=== PATIENT | male | born 1955 | race Caucasian/White ===

== ENCOUNTER 2016-08-08 16:25 | Inpatient (IN) | payer OTHER ==
[~2016-08-08] VITALS: Ht 182.9 cm; Wt 103.5 kg
[2016-08-08 16:31] VITALS: BP 150/91; PULSE 67; RESP 18; TEMP 97.8; O2SAT 98
[2016-08-08] MEDS ORDERED: DULA10IN SQ (16:56)
[2016-08-08] MEDS ORDERED: MULT1TAB84 PO (16:56)
[2016-08-08] MEDS ORDERED: ACET1CAP18 PO (16:56)
[2016-08-08] MEDS ORDERED: LABE300T PO (16:56)
[2016-08-08] MEDS ORDERED: CLOP75TA PO (16:56)
[2016-08-08] MEDS ORDERED: VESI5TAB PO (16:56)
[2016-08-08] MEDS ORDERED: ASPI325T PO (16:56)
[2016-08-08] MEDS ORDERED: PARO20TA2 PO (16:56)
[2016-08-08] MEDS ORDERED: ZOLP10TA3 PO (16:56)
[2016-08-08] MEDS ORDERED: FENO160T PO (16:56)
[2016-08-08] MEDS ORDERED: LOSA100T PO (16:56)
[2016-08-08] MEDS ORDERED: ZETI10TA5 PO (16:56)
[2016-08-08] MEDS ORDERED: NOVOLOGP2 SQ (16:56)
[2016-08-08] MEDS ORDERED: DOXA1TAB34 PO (16:56)
[2016-08-08] MEDS ORDERED: LEVO25TA4 PO (16:56)
[2016-08-08] MEDS ORDERED: CALC1TAB53 PO (16:56)
[2016-08-08] MEDS ORDERED: INSU1INJ14 SQ (16:57)
[2016-08-08] MEDS ORDERED: TOLT60TA PO (17:01)
[2016-08-08] MEDS ORDERED: GABA600T PO (17:01)
--- NOTE | 2016-08-08 17:05 | PD ---
HPI Chief Complaint: Dizziness Time Seen by Provider: 16:52 Travel History International Travel<30 days: No Contact w/Intl Traveler<30days: No Traveled to known affect area: No History of Present Illness HPI 61-year-old male came to the emergency room with history of dizziness on and off for past 2 days. Patient feels like the things in front of him are spinning and he is very unsteady on his feet. Feels like he will fall forward and face plant. He has also been little lightheaded. He has never had this kind of sensation in the past. He has been nauseous but did not vomit. No history of syncopal episode or fall. Patient says before all this started he did have a minor head injury 2 days ago. Patient has significant history of coronary artery disease and has 3 stents. Vital signs were otherwise stable. He is here with his . They're not from this area and they were passing through on the symptoms started and came into the emergency room to be checked out. Patient denies any extremity weakness or numbness. He says he does have his right arm kind of numb sensation for past 3 months but that could be related to his diabetes and neuropathy. [facility] Past Medical History Narrative Medical List of his past medical, surgical, social and family history is reviewed from the nursing note. Hx Anticoagulant Therapy: Yes Cardiac Catheterization: Yes (Stents) High Cholesterol: Yes Diabetes: Yes Patient Takes Glucophage: No Hypertension: Yes Tetanus Vaccination: > 5 Years Influenza Vaccination: Yes Past Surgical History Endocrine Surgery: Yes (Parathyroid) Social History Alcohol Use: No Tobacco Use: No Substance Use: No Allergies-Medications (Allergen,Severity, Reaction): Coded Allergies: HMG-CoA Reductase Inhibitors (Verified Allergy, Severe, Anaphylaxis, ) Lisinopril (Verified Allergy, Severe, Anaphylaxis, 08/08/16) Comments List of his allergies reviewed from the nursing note. Reported Meds & Prescriptions Reported Meds & Active Scripts Active Reported Gabapentin 600 Mg Tab 600 Mg PO TID Tolterodine (Tolterodine Tartrate) 1 Mg Tab 1 Mg PO BID Tresiba Flextouch Pen Inj (Insulin Degludec Inj) 300 unit/3 ML Pen 20 Units SQ HS Trulicity Inj (Dulaglutide Inj) 0.75 Mg/0.5 Ml Pen 0.75 Mg SQ Q7D Calcium & Magnesium + Zinc (Xukaqap-Xbwhsjkuk-Itew) 334-134-5 Mg Tab 1 Tab PO BID Multivitamin Adults (Multiple Vitamins W/ Minerals) 1 Tab 1 Tab PO DAILY Tylenol (Acetaminophen) 325 Mg Cap 1,000 Mg PO BID Novolog Inj (Insulin Aspart) 1,000 Unit/10 Ml Vial 0 SQ TID Sliding Scale as directed. Losartan (Losartan Potassium) 100 Mg Tab 100 Mg PO DAILY Clopidogrel (Clopidogrel Bisulfate) 75 Mg Tab 75 Mg PO DAILY Zetia (Ezetimibe) 10 Mg Tab 10 Mg PO DAILY Labetalol (Labetalol HCl) 300 Mg Tab 300 Mg PO BID Fenofibrate 160 Mg Tab 160 Mg PO DAILY Paroxetine (Paroxetine HCl) 20 Mg Tab 20 Mg PO DAILY Levothyroxine (Levothyroxine Sodium) 25 Mcg Tab 25 Mcg PO DAILY Narrative Medication List of his home medications reviewed from the nursing note. Review of Systems Except as stated in HPI: all other systems reviewed are Neg Physical Exam Narrative GENERAL: Awake, alert, no obvious distress SKIN: Focused skin assessment warm/dry. HEAD: Atraumatic. Normocephalic. EYES: Pupils equal and round. No scleral icterus. No injection or drainage. No nystagmus. ENT: No nasal bleeding or discharge. Mucous membranes pink and moist. NECK: Trachea midline. No JVD. CARDIOVASCULAR: Regular rate and rhythm. No murmur appreciated. RESPIRATORY: No accessory muscle use. Clear to auscultation. Breath sounds equal bilaterally. GASTROINTESTINAL: Abdomen soft, non-tender, nondistended. Hepatic and splenic margins not palpable. MUSCULOSKELETAL: No obvious deformities. No clubbing. No cyanosis. No edema. NEUROLOGICAL: Awake and alert. No obvious cranial nerve deficits. Motor grossly within normal limits. Normal speech. Peripheral vision intact. PSYCHIATRIC: Appropriate mood and affect; insight and judgment normal. Data Data Last Documented VS Orders Prothrombin Time / Inr (Pt) (08/08/16 17:17) Complete Blood Count With Diff (08/08/16 17:17) Basic Metabolic Panel (Bmp) (08/08/16 17:17) Troponin I (08/08/16 17:17) Ct Brain W/O Iv Contrast(Rout) (08/08/16 17:17) Chest, Single Ap (08/08/16 17:17) Ecg Monitoring (08/08/16 17:17) Iv Access Insert/Monitor (08/08/16 17:17) Oximetry (08/08/16 17:17) Ondansetron Inj (Zofran Inj) (08/08/16 17:30) Sodium Chloride 0.9% Flush (Ns Flush) (08/08/16 17:30) Meclizine (Antivert) (08/08/16 17:30) Sodium Chlorid 0.9% 500 Ml Inj (Ns 500 M (08/08/16 17:30) Admit Order (Ed Use Only) (08/08/16 18:15) Labs Laboratory Tests Test 08/08/16 17:20 Hemoglobin A1c 9.1 % MDM Medical Decision Making Medical Screen Exam Complete: Yes Emergency Medical Condition: Yes Medical Record Reviewed: Yes Interpretation(s) Twelve-lead EKG was reviewed by me. Normal sinus rhythm, left axis deviation, nonspecific ST-T wave changes, poor R-wave depression. Heart rate of 60 beats per minute. Differential Diagnosis TIA, CVA Narrative Course 6:05 PM blood test results of back and within acceptable limits. CT scan is negative and so is the chest x-ray. However given his significant atherosclerotic history I would like to admit him for observation for TIA. Awaiting for the hospitalist call back. Patient says he took 2 regular strength aspirin this morning. His symptoms have been going on for a while which does not make him a TPA candidate. He is also on Plavix and he doesn't take that till night. Procedures EKG Prior to Arrival: No Diagnosis Primary Impression: Dizziness Additional Impression: TIA (transient ischemic attack) Qualified Code: G45.9 - Transient cerebral ischemia, unspecified type Admitting Information Admitting Physician Requests: Observation Scripts Doxazosin 2 Mg Tab2 Mg PO BID #60 TAB Ref 0 Prov:Nik Watson MD 08/11/16 Pantoprazole (Protonix)40 Mg Tab40 Mg PO DAILY #30 TAB Ref 0 Prov:Celina Cardenas 08/10/16 [Aspirin] (Ecotrin Ec)325 MG TABEC No Conflict [id number] Mg PO BID #60 TAB.EC Prov:Celina Cardenas 08/10/16 Javier Mccray MD Aug 08, 2016 17:05 Lymphocytes # (Auto) 1.7 TH/MM3 Monocytes # (Auto) 0.6 TH/MM3 Eosinophils # (Auto) 0.5 TH/MM3 Basophils # (Auto) 0.1 TH/MM3 CBC Comment DIFF FINAL Differential Comment Prothrombin Time 10.9 SEC Prothromb Time International 1.0 RATIO Ratio Sodium Level 140 MEQ/L Potassium Level 3.9 MEQ/L Chloride Level 105 MEQ/L Carbon Dioxide Level 24.8 MEQ/L Anion Gap 10 MEQ/L Blood Urea Nitrogen 18 MG/DL Creatinine 1.30 MG/DL Estimat Glomerular Filtration 56 ML/MIN Rate Random Glucose 161 MG/DL Calcium Level 8.8 MG/DL Troponin I LESS THAN 0.02 NG/ML MDM Medical Decision Making Medical Screen Exam Complete: Yes Emergency Medical Condition: Yes Medical Record Reviewed: Yes Interpretation(s) Twelve-lead EKG was reviewed by me. Normal sinus rhythm, left axis deviation, nonspecific ST-T wave changes, poor R-wave depression. Heart rate of 60 beats per minute. Differential Diagnosis TIA, CVA Narrative Course 6:05 PM blood test results of back and within acceptable limits. CT scan is negative and so is the chest x-ray. However given his significant atherosclerotic history I would like to admit him for observation for TIA. Awaiting for the hospitalist call back. Patient says he took 2 regular strength aspirin this morning. His symptoms have been going on for a while which does not make him a TPA candidate. He is also on Plavix and he doesn't take that till night. Procedures EKG Prior to Arrival: No Diagnosis Primary Impression: Dizziness Additional Impression: TIA (transient ischemic attack) Qualified Code: G45.9 - Transient cerebral ischemia, unspecified type Admitting Information Admitting Physician Requests: Observation Javier Mccray MD Aug 08, 2016 17:05
[2016-08-08 17:30] VITALS: O2SAT 98
[2016-08-08] MEDS ORDERED: MECLIZINE HCL 25 MG TAB PO ONE (17:30)
[2016-08-08] MEDS ORDERED: SODIUM CHLORID 0.9% 500 ML INJ 500 ML IV ONE (17:30)
[2016-08-08] MEDS ORDERED: ONDANSETRON HCL 4 MG/2 ML VIAL IVP ONE (17:30)
[2016-08-08] MEDS ORDERED: SODIUM CHLORIDE 0.9% FLUSH 10 ML FLUSH IVF PRN (17:30)
[2016-08-08 17:34] LABS: AUTOMATED NEUTROPHIL # 3.9 TH/MM3 (1.8-7.7); BASOPHIL # 0.1 TH/MM3 (0-0.2); BASOPHIL % 1.2 % (0.0-2.0); EOSINOPHIL # 0.5 TH/MM3 (0-0.4); EOSINOPHIL % 7.6 % (0.0-4.0); HEMATOCRIT 44.4 % (39.0-51.0); HEMO FLAGS DIFF FINAL; LYMPH % 24.8 % (9.0-44.0); LYMPHOCYTE # 1.7 TH/MM3 (1.0-4.8); MEAN CELL VOLUME 87.7 FL (80.0-100.0); MEAN CORPUSCULAR HGB CONC 34.2 % (32.0-36.0); MONO % 9.3 % (0.0-8.0); NEUT % 57.1 % (16.0-70.0); PLATELET COUNT 296 TH/MM3 (150-450); RED BLOOD COUNT 5.07 MIL/MM3 (4.50-5.90); RED CELL DISTRIBUTION WIDTH 12.9 % (11.6-17.2); WHITE BLOOD COUNT 6.8 TH/MM3 (4.0-11.0)
[2016-08-08 17:45] VITALS: BP 179/92; PULSE 71; RESP 18; O2SAT 97
[2016-08-08 17:46] LABS: CHLORIDE 105 MEQ/L (98-107); POTASSIUM 3.9 MEQ/L (3.5-5.1); SODIUM (NA) 140 MEQ/L (136-145)
[2016-08-08 17:49] LABS: ANION GAP 10 MEQ/L (5-15); BICARBONATE 24.8 MEQ/L (21.0-32.0)
[2016-08-08 17:50] LABS: BLOOD UREA NITROGEN 18 MG/DL (7-18)
[2016-08-08 17:51] LABS: PROTHROMBIN TIME - PATIENT 10.9 SEC (9.8-11.6)
--- NOTE | 2016-08-08 17:51 | RADHPO ---
EXAM DATE/TIME: 08/08/2016 17:28 [facility] COMPARISON: No previous studies available for comparison. INDICATIONS : Dizziness. MEDICAL HISTORY : Hypertension. Cardiovascular disease. SURGICAL HISTORY : Coronary artery stent. ENCOUNTER: Initial ACUITY: 2 days PAIN SCORE: 0/10 LOCATION: Bilateral chest FINDINGS: A single view of the chest demonstrates the lungs to be symmetrically aerated without evidence of mas s, infiltrate or effusion. The cardiomediastinal contours are unremarkable. Osseous structures are intact. CONCLUSION: 1. No acute cardiopulmonary findings. Steven Canseco MD on August 08, 2016 at 17:49 Board Certified Radiologist. This report was verified electronically.
[2016-08-08 17:53] LABS: GLOMERULAR FILTRATION RATE 56 ML/MIN (>89)
--- NOTE | 2016-08-08 17:54 | RADHPO ---
EXAM DATE/TIME: 08/08/2016 17:32 [facility] COMPARISON: No previous studies available for comparison. INDICATIONS : Dizziness for two days. RADIATION DOSE: 59.07 CTDIvol (mGy) MEDICAL HISTORY : Hypertension. Diabetes. SURGICAL HISTORY : None. ENCOUNTER: Initial ACUITY: 2 days PAIN SCALE: 7/10 LOCATION: cranial TECHNIQUE: Multiple contiguous axial images were obtained of the head. Using automated exposure control and adj ustment of the mA and/or kV according to patient size, radiation dose was kept as low as reasonably a chievable to obtain optimal diagnostic quality images. FINDINGS: There is a tiny high convexity left frontal subcortical white matter lacune which appears old. Brain density is otherwise symmetric and unremarkable. There is no evidence of intracranial mass or hemorrh age. There is nothing to suggest acute infarction. Ventricles are symmetric and normal. The extracran ial structures are benign and intact. CONCLUSION: No acute intracranial findings Chaz Benson MD on August 08, 2016 at 17:52 Board Certified Radiologist. This report was verified electronically.
[2016-08-08 19:00] VITALS: BP 154/82; PULSE 68; RESP 18; O2SAT 96
[2016-08-08] MEDS ORDERED: GLUCAGON 1 MG/ML VIAL OTHER PRN (19:00)
[2016-08-08] MEDS ORDERED: SODIUM CHLORIDE 0.9% FLUSH 10 ML FLUSH IV FLUSH PRN (19:00)
[2016-08-08] MEDS ORDERED: DEXTROSE 50% IN WATER 50 ML VIAL(D50) IV PUSH PRN (19:00)
[2016-08-08] MEDS: INSULIN ASPART SUPPLEMENTAL SCALE SQ SCH (21:00)
[2016-08-08] MEDS ORDERED: LABETALOL HCL 300 MG TAB PO SCH (21:00)
[2016-08-08] MEDS ORDERED: ACETAMINOPHEN 325 MG TAB PO ONE (21:00)
[2016-08-08] MEDS: ENOXAPARIN SODIUM 40 MG/0.4 ML SYRINGE SQ SCH (21:53)
[2016-08-08] MEDS: SODIUM CHLOR 0.9% 1000 ML INJ 1,000 ML IV SCH (21:53)
[2016-08-08] MEDS ORDERED: CLOPIDOGREL 75 MG TAB PO SCH (22:00)
[2016-08-08] MEDS ORDERED: GABAPENTIN 300 MG CAP PO ONE (22:00)
[2016-08-08 22:10] VITALS: BP 169/85; PULSE 74; RESP 18; O2SAT 100
[2016-08-08] MEDS: EZETIMIBE 10 MG TAB PO SCH (22:10)
[2016-08-08] MEDS: LABETALOL HCL 100 MG TAB PO SCH (22:12)
[2016-08-08] MEDS: SODIUM CHLORIDE 0.9% FLUSH 10 ML FLUSH IV FLUSH SCH (22:14)
[2016-08-08 23:45] VITALS: PULSE 60
[2016-08-09] VITALS (7 sets, daily range): BP systolic 158–210; BP diastolic 88–112; PULSE 66–80; RESP 16–20; TEMP 97–97.9; O2SAT 94–98
[2016-08-09] MEDS: LEVOTHYROXINE SODIUM 25 MCG TAB PO SCH (06:47)
[2016-08-09] MEDS: INSULIN ASPART SUPPLEMENTAL SCALE SQ SCH ×4 (06:47→21:30)
[2016-08-09] MEDS: LABETALOL HCL 100 MG TAB PO SCH ×2 (07:43→21:27)
[2016-08-09] MEDS: PARoxetine HCL 20 MG TAB PO SCH (07:43)
[2016-08-09] MEDS: SODIUM CHLOR 0.9% 1000 ML INJ 1,000 ML IV SCH (07:44)
[2016-08-09] MEDS: TOLTERODINE TARTRATE 2 MG CAP LA PO SCH (07:44)
[2016-08-09] MEDS: GABAPENTIN 300 MG CAP PO SCH ×3 (07:44→21:27)
[2016-08-09] MEDS: SODIUM CHLORIDE 0.9% FLUSH 10 ML FLUSH IV FLUSH SCH ×2 (07:44→21:00)
[2016-08-09] MEDS: FENOFIBRATE 145 MG TAB PO SCH (07:44)
[2016-08-09] MEDS ORDERED: CLOPIDOGREL 75 MG TAB PO SCH (09:00)
[2016-08-09] MEDS ORDERED: EZETIMIBE 10 MG TAB PO SCH (09:00)
--- NOTE | 2016-08-09 09:05 | RADHPO ---
EXAM DATE/TIME: 08/09/2016 08:11 [facility] COMPARISON: MRI BRAIN W/O CONTRAST, August 09, 2016, 8:11. INDICATIONS : Dizziness. Blurred vision. MEDICAL HISTORY : Hypertension. Diabetes mellitus type 2. SURGICAL HISTORY : Thyroidectomy. Rotator cuff, left. Rotator cuff, right. Multiple orthopedic surgeries. ENCOUNTER: Initial ACUITY: 3 day PAIN SCORE: 0/10 LOCATION: cranial Please note a normal MRA of the brain does not entirely exclude the possibility of a small aneurysm, nor the possibility of distal intracranial vessel disease. TECHNIQUE: 3D time of flight MRA was performed. Source images, multiplanar STS MIP, and 3D volume MIP reconstru ctions were reviewed. FINDINGS: There is excellent visualization of the major intracranial arteries out to the second-order branch ve ssels. There is no evidence for aneurysm, vessel truncation or stenosis, and no evidence for vascula r malformation. Of note the bilateral vertebral arteries and basilar artery are diminutive in caliber . The kiana of Bhagat appears intact. CONCLUSION: No evidence of stenosis or aneurysm. Although the kiana of Bhagat is intact the vertebral arteries a nd basilar arteries are diffusely narrowed in caliber with respect to the remainder of the cerebral v asculature. Laina Lowe MD on August 09, 2016 at 9:00 Board Certified Radiologist. This report was verified electronically.
--- NOTE | 2016-08-09 09:12 | RADHPO ---
EXAM DATE/TIME: 08/09/2016 08:11 [facility] COMPARISON: CT BRAIN W/O CONTRAST, August 08, 2016, 17:32. INDICATIONS : Dizziness. Blurred vision MEDICAL HISTORY : Hypertension. Diabetes mellitus type 2. SURGICAL HISTORY : Thyroidectomy. Rotator cuff, left. Rotator cuff, right. Orthopedic surgeries. ENCOUNTER: Initial ACUITY: 1 day PAIN SCORE: 0/10 LOCATION: cranial TECHNIQUE: Multiplanar, multisequence MRI of the brain was performed without contrast. FINDINGS: CEREBRUM: The ventricles are symmetric in size without evidence of effacement. The adjacent white matter demons trates multifocal areas of increased T2 signal which are not associated with restricted diffusion. Th garcia foci demonstrate no evidence effacement. No intra-axial or extra-axial fluid collection. WHITE MATTER: Scattered foci of increased T2 signal identified within the white matter. POSTERIOR FOSSA: There are areas of punctate acute restricted diffusion identified within the right cerebellum with co rresponding low signal on the ADC map consistent with acute infarct. There is no evidence of adjacent edema or mass effect. DIFFUSION IMAGING: Focal areas of acute diffusion identified within the right cerebellum as noted above. EXTRACRANIAL: Diffuse sinus disease seen predominantly within the sphenoid sinuses and right ethmoid air cells and maxillary sinus. CONCLUSION: Foci of acute infarct identified within the right cerebellum. No evidence of mass effect or effacemen t of the fourth ventricle. The foci of increased T2 signal identified in the supratentorial white mat ter are nonspecific and may reflect sequelae of chronic small vessel ischemic change. Laina Lowe MD on August 09, 2016 at 9:03 Board Certified Radiologist. This report was verified electronically.
[2016-08-09 12:16] LABS: HDL CHOLESTEROL 39.6 MG/DL (40.0-60.0)
[2016-08-09 13:14] LABS: HEMOGLOBIN A1a 0.9 %; HEMOGLOBIN A1b 2.3 %; HEMOGLOBIN Ao 80.4 %; HEMOGLOBIN LA1C 2.4 %; HEMOGLOBIN P3 4.7 %
--- NOTE | 2016-08-09 13:51 | RADHPO ---
EXAM DATE/TIME: 08/09/2016 12:42 [facility] COMPARISON: No previous studies available for comparison. INDICATIONS : Cerebrovascular accident. MEDICAL HISTORY : Hypercholesterolemia. Hypertension. Anticoagulant therapy. Diabetes. Measles. SURGICAL HISTORY : Coronary artery stent. Balateral shoulder surgeries. Bilateral knee surgeries. Left hip surgery. Right wrist surgery. Parathyroid surgery. ENCOUNTER: Initial ACUITY: 2 days PAIN SCORE: 0/10 LOCATION: Bilateral neck PEAK SYSTOLIC VELOCITIES (cm/sec): ICA/CCA RATIO: Right: 1.3 Left: 2.0 ICA: Right: 99 Left: 125 CCA: Right: 75 Left: 64 ECA: Right: 106 Left: 87 VERTEBRAL: Right: 47 antegrade Left: 47 antegrade Elevated flow velocities and ICA/CCA ratios have been found to correlate with increased degrees of vessel stenosis, calculated as percentage of diameter relative to a normal segment of distal ICA/CCA FINDINGS: RIGHT CAROTID: Moderate atherosclerotic plaque identified within the bulb. However the waveforms and velocities are within normal limits. LEFT CAROTID: There is a moderate atherosclerotic plaque identified within the right bulb, greater than the right. There is elevated velocity identified within the proximal left internal carotid artery consistent wit h a 50-69% stenosis. The waveforms are within normal limits. VERTEBRAL ARTERIES: Antegrade flow is seen in both vertebral arteries. MISCELLANEOUS: None. CONCLUSION: Elevated velocity identified within the proximal left internal carotid artery consist ent with a 50-69% stenosis. This correlates with the degree of sclerosis seen on [place] scale. No signi ficant stenosis identified in the right internal carotid artery. Laina Lowe MD on August 09, 2016 at 13:46 Board Certified Radiologist. This report was verified electronically.
--- NOTE | 2016-08-09 14:27 | EKG ---
Date Performed: 08/08/2016 Time Performed: 16:33:32 PTAGE: 61 years EKG: Sinus rhythm Leftward axis Lateral T wave changes may be due to myocardial ischemia Abnormal ECG NO PREVIOUS TRACING DOCTOR: Ender Walker Interpretating Date/Time 08/09/2016 14:24:12
--- NOTE | 2016-08-09 17:55 | HHI.HP ---
[facility] Non-Staff Admission Diagnosis dizziness, TIA Diagnoses: (1) Stroke Diagnosis: Principal (2) HTN (hypertension) Diagnosis: Principal (3) Poorly controlled diabetes mellitus Diagnosis: Principal (4) HLD (hyperlipidemia) Diagnosis: Principal Chief Complaint: dizziness, difficulty walking Travel History International Travel<30 Days: No Contact w/Intl Traveler <30 Da: No Traveled to Known Affected Are: No History of Present Illness 61-year-old male with history of coronary artery disease, hyperlipidemia, hypertension, and diabetes presents with complaint of dizziness and difficulty walking. 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 He states it then decreased but yesterday morning it occurred again but then calmed down. He states he and his left [facility] and were on their way to [place] when he became quite dizzy and very lightheaded with blurry vision. He states he was falling and couldn't walk. CT had some mild nausea, but he denies any weakness , numbness or tingling in extremities, or slurred speech. He denies any fevers , chest pain, shortness of breath, vomiting, or diarrhea. He states he feels better now that he is back to normal. But he does admit to some cramping discomfort in his left calf which she has had for 6 months. The patient is a diabetic and states his blood glucose levels are all over the place. He denies any recent hypoglycemic episodes. He denies any history of A. fib, palpitations , or chest pain on exertion. He had a stress test last March which was normal. His father had Factor V Leiden deficiency, but he states he has been tested and does not have this. Review of Systems Except as stated in HPI: all other systems reviewed are Neg Past Family Social History Past Medical History Coronary artery disease, 3 stents, last one placed in 2010 Hyperlipidemia Hypertension Diabetes Depression Chronic constipation Past Surgical History Left wrist 2013 Arthroscopy right shoulder and left shoulder Parathyroidectomy Surgical repair of L femur fracture 2000 L3-L4 laser disc surgery in 1993 Reported Medications Benadryl Allergy (Diphenhydramine HCl) 25 Mg Tab 50 Mg PO HS PRN Metamucil Original Texture (Psyllium Hydrophilic Mucilloid) 48.57 % Pow 1 Scoop PO TID PRN 1 rounded TEASPOON in 8 oz of liquid at the first sign of irregularity. Miralax Powder (Polyethylene Glycol 3350 Powder) 17 Gm Powd 17 Gm PO DAILY Mix and dissolve one measuring cap-ful (17 grams) in water or juice. Gabapentin 600 Mg Tab 600 Mg PO TID Tolterodine (Tolterodine Tartrate) 1 Mg Tab 1 Mg PO BID Tresiba Flextouch Pen Inj (Insulin Degludec Inj) 300 unit/3 ML Pen 20 Units SQ HS Trulicity Inj (Dulaglutide Inj) 0.75 Mg/0.5 Ml Pen 0.75 Mg SQ Q7D Vesicare (Solifenacin) 5 Mg Tab 5 Mg PO BID Calcium & Magnesium + Zinc (Amqveyj-Ncscnxtrs-Frxr) 334-134-5 Mg Tab 1 Tab PO BID Multivitamin Adults (Multiple Vitamins W/ Minerals) 1 Tab 1 Tab PO DAILY Tylenol (Acetaminophen) 325 Mg Cap 1,000 Mg PO BID Aspirin 325 Mg Tab 650 Mg PO BID Novolog Inj (Insulin Aspart) 1,000 Unit/10 Ml Vial 0 SQ TID Sliding Scale as directed. Zolpidem (Zolpidem Tartrate) 10 Mg Tab 10 Mg PO HS Losartan (Losartan Potassium) 100 Mg Tab 100 Mg PO DAILY Clopidogrel (Clopidogrel Bisulfate) 75 Mg Tab 75 Mg PO DAILY Zetia (Ezetimibe) 10 Mg Tab 10 Mg PO DAILY Labetalol (Labetalol HCl) 300 Mg Tab 300 Mg PO BID Fenofibrate 160 Mg Tab 160 Mg PO DAILY Doxazosin (Doxazosin Mesylate) 4 Mg Tab 4 Mg PO BID Paroxetine (Paroxetine HCl) 20 Mg Tab 20 Mg PO DAILY Levothyroxine (Levothyroxine Sodium) 25 Mcg Tab 25 Mcg PO DAILY Allergies: Coded Allergies: HMG-CoA Reductase Inhibitors (Verified Allergy, Severe, Anaphylaxis, ) Lisinopril (Verified Allergy, Severe, Anaphylaxis, 08/08/16) Family History Mother: Thyroid disease, breast cancer, and some type of abdominal cancer, Alzheimer's. Father: Cardiac disease but no history of MD; COPD, uncontrolled diabetes, Factor V Leiden deficiency Social History Patient quit drinking alcohol in 1993. Denies history of tobacco use. Denies illicit drug use. Physical Exam Vital Signs Vital Signs Date Time Temp Pulse Resp B/P Pulse Ox O2 Delivery O2 Flow Rate FiO2 08/09/16 12:00 97.0 78 18 187/101 96 08/09/16 08:00 97.5 68 18 200/101 95 190/90 08/09/16 04:00 97.9 66 16 162/88 98 08/09/16 00:00 97.1 67 20 179/94 95 08/08/16 23:45 60 08/08/16 22:10 74 18 169/85 100 Room Air 08/08/16 19:00 68 18 154/82 96 Room Air Physical Exam GENERAL: This is a pleasant well-nourished, well-developed patient, in no apparent distress. Appears older than his stated age. SKIN: No rashes, ecchymoses or lesions. Warm and dry. HEAD: Atraumatic. Normocephalic. EYES: Pupils equal round and reactive. Extraocular motions intact. No scleral icterus. No injection or drainage. ENT: Throat without erythema, tonsillar hypertrophy or exudate. Uvula midline. Airway patent. NECK: Trachea midline. No carotid bruits bilaterally. No lymphadenopathy. CARDIOVASCULAR: Regular rate and rhythm without murmurs, gallops, or rubs. RESPIRATORY: Clear to auscultation. Breath sounds equal bilaterally. No wheezes , rales, or rhonchi. GASTROINTESTINAL: Abdomen soft, non-tender, nondistended. MUSCULOSKELETAL: No lower extremity edema bilaterally. Mildly tender to palpation over left calf. 2+ left DP pulse. Capillary refill normal right foot. NEUROLOGICAL: Awake and alert. Cranial nerves II through XII intact. Five out of 5 muscle strength in bilateral upper and lower extremities. No pronator drift. Normal patellar reflexes bilaterally. Normal speech. Laboratory Laboratory Tests Test 08/09/16 07:35 Triglycerides Level 400 Cholesterol Level 213 LDL Cholesterol 93 HDL Cholesterol 39.6 Cholesterol/HDL Ratio 5.37 Result Diagram: 08/08/16 1720 08/08/16 1720 Imaging Last Impressions Head Magnetic Resonance Angiography 08/09/16 0000 Signed Impressions: Service Date/Time: Tuesday, August 09, 2016 08:11 - CONCLUSION: No evidence of stenosis or aneurysm. Although the [place] is intact the vertebral arteries and basilar arteries are diffusely narrowed in caliber with respect to the remainder of the cerebral vasculature. Laina Lowe MD Carotid Artery Ultrasound 08/09/16 0000 Signed Impressions: Service Date/Time: Tuesday, August 09, 2016 12:42 - CONCLUSION: Elevated velocity identified within the proximal left internal carotid artery consistent with a 50-69%% stenosis. This correlates with the degree of sclerosis seen on b[place] scale. No significant stenosis identified in the right internal carotid artery. Laina Lowe MD Brain MRI 08/09/16 0000 Signed Impressions: Service Date/Time: Tuesday, August 09, 2016 08:11 - CONCLUSION: Foci of acute infarct identified within the right cerebellum. No evidence of mass effect or effacement of the fourth ventricle. The foci of increased T2 signal identified in the supratentorial white matter are nonspecific and may reflect sequelae of chronic small vessel ischemic change. Laina Lowe MD Head CT 08/08/161716 Signed Impressions: Service Date/Time: Monday, August 08, 2016 17:32 - CONCLUSION: No acute intracranial findings Chaz Benson MD Chest X-Ray 08/08/161716 Signed Impressions: Service Date/Time: Monday, August 08, 2016 17:28 - CONCLUSION: 1. No acute cardiopulmonary findings. Steevn Canseco MD Assessment and Plan Assessment and Plan 61-year-old male with: Stroke: with complaint of dizziness and difficulty walking. Symptoms resolved. -EKG with sinus rhythm, left axis deviation, and lateral T-wave changes. No prior EKG for comparison. -MRI brain: Foci of acute infarct identified within the right cerebellum. No evidence of mass effect or effacement of the fourth ventricle. -MRA brain: [place] is intact, but the vertebral arteries and basilar arteries are diffusely narrowed. -Carotid US: Elevated velocity identified within the proximal left internal carotid artery consistent with a 50-69%% stenosis. No significant stenosis identified in the right internal carotid artery. -Echo ordered -Neurology consultation -Glucose checks -Neuro checks -Telemetry -PT/OT evaluation -ASA 325 mg daily HTN: 150/91 on arrival, 210/112 at highest. -Continue home Labetalol, but otherwise allow permissive HTN for now. Hold remaining home BP meds. Poorly controlled DM: Hb A1c 9.1. -Start Levemir 10 units qhs. -Bedside glucose checks and low dose SSI HLD: New Lipid profile with triglycerides 400, LDL 93, HDL 39.6. -Continue fenofibrate. Patient's throat closes up with statin use; will avoid starting this. -Goal LDL <70. CAD: Continue Plavix. Continue home medications for chronic constipation, depression, thyroid. GI prophylaxis: Pepcid DVT prevention: Lovenox Written by Celina Cardenas PA-C acting as scribe for Dr. Watson on 08/09/16 at 1725. All or portions of this note were transcribed by scribe [Celina Cardenas]. I, Dr. Nik Watson personally performed the history, physical exam, and medical decision making; and confirmed the accuracy of the information in the transcribed note. Authenticated by Dr. Nik Watson on 08/09/16 at 23:34. Physician Certification 2 Midnight Certification Type: Admission for Inpatient Services Order for Inpatient Services The services are ordered in accordance with Medicare regulations or non- Medicare payer requirements, as applicable. In the case of services not specified as inpatient-only, they are appropriately provided as inpatient services in accordance with the 2-midnight benchmark. Estimated LOS (days): 2 days is the estimated time the patient will need to remain in the hospital, assuming treatment plan goals are met and no additional complications. Post-Hospital Plan: Home Problem Qualifiers (1) Stroke: Celina Cardenas Aug 09, 2016 17:55 Nik Watson MD Aug 09, 2016 23:34
[2016-08-09] MEDS ORDERED: MIRA33504 PO (18:20)
[2016-08-09] MEDS ORDERED: META48.53 PO (18:20)
[2016-08-09] MEDS: ASPIRIN EC 325 MG TABEC PO SCH (18:20)
[2016-08-09] MEDS ORDERED: BENA25TA3 PO (18:23)
[2016-08-09] MEDS ORDERED: PSYLLIUM FIBER SF/GF 6 GM POWD PKT PO PRN (19:15)
[2016-08-09] MEDS: FAMOTIDINE 20 MG TAB PO SCH (21:00)
--- NOTE | 2016-08-09 21:12 | RADHPO ---
EXAM DATE/TIME: 08/09/2016 20:01 [facility] COMPARISON: No previous studies available for comparison. INDICATIONS : Left leg pain. MEDICAL HISTORY : Hypercholesterolemia. Hypertension. Anticoagluation therapy. SURGICAL HISTORY : Coronary artery stent. Bilateral shoulder surgeries. Bilateral knee surgeries. ENCOUNTER: Initial ACUITY: 4 - 6 days PAIN SCORE: 3/10 LOCATION: Left leg. TECHNIQUE: Venous ultrasound of the leg was performed from the inguinal ligament to the proximal calf. Real-ishaan e, color Doppler and spectral tracing, compression and augmentation techniques were used. FINDINGS: There is normal compressibility of the deep venous system from the inguinal region to the proximal ca lf. No echogenic clot is seen in the lumen of the common femoral, femoral, popliteal, and posterior tibial veins. There is a normal response of the venous system to proximal and distal augmentation an d respiration. CONCLUSION: No DVT. Miah Key MD on August 09, 2016 at 21:10 Board Certified Radiologist. This report was verified electronically.
[2016-08-09] MEDS: EZETIMIBE 10 MG TAB PO SCH (21:27)
[2016-08-09] MEDS: ENOXAPARIN SODIUM 40 MG/0.4 ML SYRINGE SQ SCH (21:27)
[2016-08-09] MEDS: INSULIN DETEMIR 100 UNITS/ML VIAL SQ SCH (21:28)
--- NOTE | 2016-08-09 22:53 | MB ---
cc: AGUSTIN NICOLE M.D. DATE OF CONSULTATION 08/09/16 DATE OF 1955 AGE [id number]. REASON FOR CONSULTATION Right cerebellar infarct. HISTORY OF PRESENT ILLNESS The patient is a pleasant 61-year-old man from out of town, they live in [place], comes in because of dizziness for the last couple of days, unsteady gait, felt like everything has been spinning. His thought that maybe it was his neuropathy in his low back that is why he was walking unusually. He came home from work, he works nights and started having issues a couple days prior to presentation to the hospital. Subsequently they were on vacation, they were headed up to [place] when they decided to stop to get an evaluation. He has not fallen. He has been nauseated but did not vomit. He is feeling better today. No loss of consciousness. Does have a significant history of coronary artery disease, has 3 non-coated stents. 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 He has a history of diabetes, peripheral neuropathy, hypertension. PAST SURGICAL HISTORY Parathyroid surgery. SOCIAL HISTORY He does not smoke, drink or use drugs. ALLERGIES HMG-COA REDUCTASE INHIBITORS AND LISINOPRIL. MEDICATIONS Reported meds at home: 1. Gabapentin 600 milligrams t.i.d. 2. Tolterodine 1 milligram b.i.d. 3. Trulicity. 4. Vesicare. 5. Calcium. 6. Magnesium. 7. Zinc. 8. Multivitamins. 9. Tylenol. 10. Aspirin 325 milligrams he takes twice a day. 11. NovoLog. 12. Zolpidem. 13. Losartan. 14. Plavix 75 mg daily. 15. Zetia. 16. Labetalol. 17. Fenofibrate. 18. Doxazosin. 19. Paroxetine. 20. Levothyroxine. 21. He also takes Metamucil and MiraLax for chronic constipation. PHYSICAL EXAMINATION VITAL SIGNS: On exam his vitals temperature 97.3, pulse 80, respiratory rate 18, blood pressure at 4 o'clock was 210/112 and repeat 198/88. NECK: Neck is supple. No bruits. HEART; His heart is regular. LUNGS: Appear clear. NEURO: He is awake and alert. He is oriented and fluent. Pupils are reactive. Visual montes full. Face symmetrical. Tongue midline. There is no nystagmus. On cerebellar testing [id number] no past-pointing. No dysmetria. No leg lag. No drift. DTRs are 1+. Sensory, he is very sensitive to his feet but he withdraws both toes to Babinski. Gait I will defer to PT. LABORATORY DATA Cholesterol 213, triglycerides 400, LDL 93, HDL 39.6, hemoglobin A1c 9.1, GFR 56, glucose 161. Coag panel unremarkable. CBC is basically normal. IMAGING STUDIES MRA of the [place] did not show any stenosis or aneurysm but the [place] is intact. The vertebral arteries and basilar are diffusely narrowed in caliber with respect to the other vasculature. Carotid ultrasound elevated velocity identified in the proximal left ICA consistent with 50-69% stenosis. No stenosis on the right. MRI brain does show an acute infarct in the right cerebellum. No mass effect. No effacement of the fourth ventricle. Some T2 white matter changes as well. IMPRESSION A 61-year-old male with history of hypertension, hyperlipidemia and diabetes with a small right cerebellar infarct with questionable carotid disease and some possible narrowing on MRA of the vertebral and basilar artery. RECOMMENDATIONS A strict diabetic control. Will continue his aspirin and Plavix for the interim. I would like to get a CTA of the [place] and carotids to better delineate #1 that left carotid as well as looking at his vertebral and basilar artery and if they are both fine I suspect that this is just a small plaque, ___ calcified plaque. I doubt this is embolic phenomenon. He does have a Holter monitor on with a diary. Recommend now that he is a few days post event continue his home antihypertensives and having his blood pressure normalized. However, I would not lower him below 120 systolic. Will continue with physical therapy and depending on findings further recommendations. If his imaging is negative and he is stable anticipate discharge likely in the next 24 hours. MD SKIP Jarrell/SEAN /6:39 PM /10:34 PM
[2016-08-10] VITALS (7 sets, daily range): BP systolic 158–199; BP diastolic 80–103; PULSE 62–70; RESP 18–20; TEMP 96.5–98; O2SAT 97–98
[2016-08-10] MEDS: GABAPENTIN 300 MG CAP PO SCH ×3 (06:23→20:33)
[2016-08-10] MEDS: LEVOTHYROXINE SODIUM 25 MCG TAB PO SCH (06:23)
[2016-08-10] MEDS: INSULIN ASPART SUPPLEMENTAL SCALE SQ SCH ×4 (06:24→20:32)
[2016-08-10] MEDS: FENOFIBRATE 145 MG TAB PO SCH (08:54)
[2016-08-10] MEDS: ASPIRIN EC 325 MG TABEC PO SCH (08:55)
[2016-08-10] MEDS: TOLTERODINE TARTRATE 2 MG CAP LA PO SCH (08:55)
[2016-08-10] MEDS: PARoxetine HCL 20 MG TAB PO SCH (08:55)
[2016-08-10] MEDS: CLOPIDOGREL 75 MG TAB PO SCH (08:55)
[2016-08-10] MEDS: LABETALOL HCL 100 MG TAB PO SCH ×2 (08:55→20:32)
[2016-08-10] MEDS: POLYETHYLENE GLYCOL 17 GM PKG PO SCH (08:55)
[2016-08-10] MEDS: SODIUM CHLORIDE 0.9% FLUSH 10 ML FLUSH IV FLUSH SCH ×2 (08:56→20:34)
--- NOTE | 2016-08-10 10:09 | EC ---
Study Study Date:08/09/2016 STUDY CONCLUSIONS SUMMARY - Left ventricle: The cavity size was normal. Wall thickness was normal. Systolic function was mildly reduced. The estimated ejection fraction was in the range of 45% to 50%. Wall motion was normal; there were no regional wall motion abnormalities. - Aortic valve: Valve area: 2.17cm^2 (Vmax). - Mitral valve: Mildly calcified annulus. - Pulmonary arteries: PA peak pressure: 32mm Hg (S). If LV function is below 40, please consider prescribing an ACEI or ARB or document rationale for non-use. PROCEDURE DATA STUDY STATUS: Elective. Procedure: Transthoracic echocardiography. Image quality was poor. Scanning was performed from the parasternal, apical, and subcostal acoustic windows. Study completion: The patient tolerated the procedure well. Transthoracic echocardiography. M-mode, complete 2D, complete spectral Doppler, and color Doppler. Height: Height: 72in. Weight: Weight: 232.5lb. Body mass index: BMI: 31.6kg/m^2. Body surface area: BSA: 2.27m^2. Patient status: Inpatient. CARDIAC ANATOMY LEFT VENTRICLE: The cavity size was normal. Wall thickness was normal. Systolic function was mildly reduced. The estimated ejection fraction was in the range of 45% to 50%. Wall motion was normal; there were no regional wall motion abnormalities. AORTIC VALVE: Trileaflet; mildly thickened, mildly calcified leaflets. Doppler: Transvalvular velocity was within the normal range. There was no stenosis. No regurgitation. Valve area: 2.17cm^2 (Vmax). Indexed valve area: 0.96cm^2/m^2 (Vmax). AORTA: Aortic root: The aortic root was normal in size. MITRAL VALVE: Mildly calcified annulus. Doppler: Transvalvular velocity was within the normal range. There was no evidence for stenosis. Trace to mild regurgitation. Peak gradient: 3mm Hg (D). LEFT ATRIUM: The atrium was normal in size. RIGHT VENTRICLE: The cavity size was normal. Wall thickness was normal. PULMONIC VALVE: Doppler: Transvalvular velocity was within the normal range. There was no evidence for stenosis. No regurgitation. TRICUSPID VALVE: Structurally normal valve. Doppler: Transvalvular velocity was within the normal range. No regurgitation. PULMONARY ARTERY: The main pulmonary artery was normal-sized. Systolic pressure was within the normal range. RIGHT ATRIUM: The atrium was normal in size. PERICARDIUM: There was no pericardial effusion. SYSTEMIC VEINS: Inferior vena cava: The vessel was normal in size. Patient weight: 232.5lb _Ejection fraction:_ 65-75% _Fractional shortening:_ 32% up to 5Kg 5-11.5Kg 11.6-22.9Kg 23-45Kg 45-57Kg Aortic Root 7-13 <17 13-22 17-27 17-27 LA diam 6-13 <23 24-38 33-47 37-40 RVID 10-17 7-15 7-15 7-18 8-17 LVIDd 12-22 <32 24-38 33-47 37-40 LVPW 2-4 3-6 5-7 6-8 7-8 IVS 2-4 3-6 5-7 6-8 7-8 BASIC MEASUREMENTS ADULT NORMAL Left ventricle LV internal dimension, ED, chordal *52.7 mm 43-52 level, PLAX LV internal dimension, ES, chordal *42.7 mm 23-38 level, PLAX Fractional shortening, chordal level, *19 % >29 PLAX LV posterior wall thickness, ED 8.44 mm IVS/LVPW ratio, ED 1.02 <1.3 Ventricular septum Septal thickness, ED 8.62 mm Aortic valve Leaflet separation 20 mm 15-26 BASIC MEASUREMENTS ADULT NORMAL Aortic valve Leaflet separation 20 mm 15-26 Aorta Root diameter, ED 28 mm 20-37 Left atrium Anterior-posterior dimension, ES 32 mm 19-40 Anterior-posterior dimension index, ES 1.41 cm/m^2 <2.2 LA/aortic root ratio 1.14 DOPPLER MEASUREMENTS ADULT NORMAL Main pulmonary artery Pressure, S *32 mm Hg =30 Pressure, ED 20 mm Hg Aortic valve Peak velocity, S 110 cm/s Valve area, Vmax 2.17 cm^2 Valve area index, Vmax 0.96 cm^2/m^2 Mitral valve Peak E-wave velocity 86.9 cm/s Peak A-wave velocity 66.1 cm/s Deceleration time *275 ms 150-230 Peak gradient, D 3 mm Hg Peak E/A ratio 1.3 Maximal regurgitant velocity 323 cm/s Tricuspid valve Regurgitant peak velocity 251 cm/s Peak RV-RA gradient, S 25 mm Hg Maximal regurgitant velocity 251 cm/s Systemic veins Estimated CVP 10 mm Hg Right ventricle RV pressure, S *35 mm Hg <30 Pulmonic valve Peak velocity, S 82.8 cm/s Regurgitant velocity, ED 155 cm/s LEGEND: Mean values are shown as u=mean value. Asterisk (*) eng values outside specified normal range. Prepared and signed by Jorge Garcia [id number]
--- NOTE | 2016-08-10 10:56 | HHI.PR ---
Subjective Remarks Patient evaluated at 1030. Follow-up for stroke. Patient feels his norm. Patient denies any headache, dizziness, or blurred vision. Denies any weakness or altered speech. Objective Vitals Vital Signs Date Time Temp Pulse Resp B/P Pulse Ox O2 Delivery O2 Flow Rate FiO2 08/10/16 05:19 98.0 70 20 161/101 97 08/10/16 00:25 98.0 70 18 164/86 97 08/09/16 22:10 97.7 69 18 158/96 94 Automatic Cuff 08/09/16 20:00 66 08/09/16 16:00 97.3 80 18 210/112 96 190/88 08/09/16 12:00 97.0 78 18 187/101 96 I/O 08/09/16 08/09/16 08/09/16 08/10/16 08/10/16 08/10/16 07:00 15:00 23:00 07:00 15:00 23:00 Intake Total 600 ml Balance 600 ml Intake Oral 600 ml # Voids 3 4 Result Diagram: 08/08/16 1720 08/08/16 1720 Imaging Last Impressions Lower Extremity Ultrasound 08/09/16 0000 Signed Impressions: Service Date/Time: Tuesday, August 09, 2016 20:01 - CONCLUSION: No DVT. Miah Key MD Head Magnetic Resonance Angiography 08/09/16 0000 Signed Impressions: Service Date/Time: Tuesday, August 09, 2016 08:11 - CONCLUSION: No evidence of stenosis or aneurysm. Although the [place] is intact the vertebral arteries and basilar arteries are diffusely narrowed in caliber with respect to the remainder of the cerebral vasculature. Laina Lowe MD Carotid Artery Ultrasound 08/09/16 0000 Signed Impressions: Service Date/Time: Tuesday, August 09, 2016 12:42 - CONCLUSION: Elevated velocity identified within the proximal left internal carotid artery consistent with a 50-69%% stenosis. This correlates with the degree of sclerosis seen on [place] scale. No significant stenosis identified in the right internal carotid artery. Laina Lowe MD Brain MRI 08/09/16 0000 Signed Impressions: Service Date/Time: Tuesday, August 09, 2016 08:11 - CONCLUSION: Foci of acute infarct identified within the right cerebellum. No evidence of mass effect or effacement of the fourth ventricle. The foci of increased T2 signal identified in the supratentorial white matter are nonspecific and may reflect sequelae of chronic small vessel ischemic change. Laina Lowe MD Head CT 08/08/161716 Signed Impressions: Service Date/Time: Monday, August 08, 2016 17:32 - CONCLUSION: No acute intracranial findings Chaz Benson MD Chest X-Ray 08/08/161716 Signed Impressions: Service Date/Time: Monday, August 08, 2016 17:28 - CONCLUSION: 1. No acute cardiopulmonary findings. Steven Canseco MD Objective Remarks GENERAL: Well-nourished, developed patient no apparent distress. SKIN: Warm and dry. HEAD: Atraumatic. Normocephalic. EYES: Pupils equal and round. No scleral icterus. No injection or drainage. ENT: Mucous membranes pink and moist. Airway patent. CARDIOVASCULAR: Regular rate and rhythm. RESPIRATORY: No accessory muscle use. Clear to auscultation. Breath sounds equal bilaterally. GASTROINTESTINAL: Abdomen soft, non-tender, nondistended. MUSCULOSKELETAL: No lower extremity edema bilaterally. NEUROLOGICAL: Awake and alert. No obvious cranial nerve deficits. Motor grossly within normal limits. Five out of 5 muscle strength in bilateral arms and legs. Normal speech. PSYCHIATRIC: Appropriate mood and affect; insight and judgment normal. Urinary Catheter: No Vascular Central Line Catheter: No A/P Problem List: (1) Stroke ICD Code: I63.9 Status: Acute (2) HTN (hypertension) ICD Code: I10 Status: Acute (3) Poorly controlled diabetes mellitus ICD Code: E11.65 Status: Acute (4) HLD (hyperlipidemia) ICD Code: E78.5 Status: Acute Assessment and Plan 61-year-old male with: Stroke: with complaint of dizziness and difficulty walking. Symptoms resolved. -EKG with sinus rhythm, left axis deviation, and lateral T-wave changes. No prior EKG for comparison. -MRI brain: Foci of acute infarct identified within the right cerebellum. No evidence of mass effect or effacement of the fourth ventricle. -MRA brain: [place] is intact, but the vertebral arteries and basilar arteries are diffusely narrowed. -Carotid US: Elevated velocity identified within the proximal left internal carotid artery consistent with a 50-69% stenosis. No significant stenosis identified in the right internal carotid artery. -Echo with mildly reduced systolic function, EF 45-50%. -Neurology consultation appreciated. Dr. Dewitt recommends continuing home antihypertensives but systolic BP should not be below 120. -Neuro has ordered CTA of the [place] and carotids which show high grade stenosis of the L internal carotid artery; consulted vacular surgery; spoke with Dr. Herrmann who states patient can follow up with vascular surgeon outpatient in [facility]. -Glucose checks -Neuro checks -Telemetry -PT/OT evaluation -ASA 325 mg daily while in hospital -Spoke with Dr. Dewitt; she advises patient speak with hat band attacher in regards to anticoagulation change; she is ok with him continuing aspirin 325 mg bid. I verified later that patient actually takes 650 mg bid; discussed with Dr. Watson who advises only continuing 325 bid at home and add PPI. HTN: 210/112 at highest. -Continue home Labetalol -Discontinue permissive HTN -Resume Losartan and Doxazosin which patient takes at home. -Patient's BP still 182/94 this afternoon. Discussed with Dr. Watson. 10 mg IV Hydralazine ordered. BP rechecked and dropped into 120's. RN later checked orthostatics, supine SBP 162-->142 sitting and standing; patient still feels mildly dizzy. Will observe patient and monitor BP tonight and discharge in the am. Poorly controlled DM: Hb A1c 9.1. -Continue Levemir 10 units qhs. -Bedside glucose checks. BGLs reviewed. Change low dose SSI to medium scale. HLD: New Lipid profile with triglycerides 400, LDL 93, HDL 39.6. -Continue fenofibrate. Patient's throat closes up with statin use; will avoid starting this. -Goal LDL <70. CAD: Continue Plavix. Continue home medications for chronic constipation, depression, thyroid. GI prophylaxis: Pepcid DVT prevention: Lovenox Discharge Planning OT is no recommendation for home. PT documents patient wnl although recommends HHC. I discussed with Damian physical therapist today who states patient does not require HHC PT. D/c tomorrow. Attending Statement The exam, history, and the medical decision-making described in the above note were completed with the assistance of the mid-level provider. I reviewed and agree with the findings presented. I attest that I had a [id number] encounter with the patient on the same day, and personally performed and documented my assessment and findings in the medical record.patient seen this morning. Says he feels well. Unfortunately relative hypotension and lightheadedness after hydralazine. Will monitor. Plan for discharge in a.m. We'll need to follow-up with cardiovascular surgery as outpatient. Problem Qualifiers (1) Stroke: Celina Cardenas Aug 10, 2016 10:56 Nik Watson MD Aug 10, 2016 20:54
--- NOTE | 2016-08-10 11:08 | HHI.DCPOC ---
Discharge Care Plan Diagnosis: (1) Stroke (2) HTN (hypertension) (3) Poorly controlled diabetes mellitus (4) HLD (hyperlipidemia) (5) Stenosis of left internal carotid artery Goals to Promote Your Health * To prevent worsening of your condition and complications * To maintain your health at the optimal level Directions to Meet Your Goals Take your medications as prescribed Follow your dietary instruction Follow activity as directed Keep your appointments as scheduled Take your immunizations and boosters as scheduled If your symptoms worsen call your PCP, if no PCP go to Urgent Care Center or Emergency Room Smoking is Dangerous to Your Health. Avoid second hand smoke Call the 24-hour hour crisis hotline for domestic abuse at Celina Cardenas Aug 10, 2016 11:08
[2016-08-10] MEDS: DOXAZOSIN MESYLATE 4 MG TAB PO SCH ×2 (11:35→20:32)
[2016-08-10] MEDS: LOSARTAN 50 MG TAB PO SCH (11:35)
[2016-08-10] MEDS ORDERED: IOHEXOL 350 MG/ML 10 ML VIAL (for RAD DIAG) IV ONE (13:00)
--- NOTE | 2016-08-10 13:11 | RADHPO ---
EXAM DATE/TIME: 08/10/2016 12:09 This report includes an Addendum and supersedes previous reports for this exam. [facility] COMPARISON: MRI BRAIN W/O CONTRAST, August 09, 2016, 8:11. MRA BRAIN W/O CONTRAST, August 09, 2016, 8:11. INDICATIONS : Cephaliga, occlusion. IV CONTRAST: 95 cc Omnipaque 350 (iohexol) IV ; Cumulative dose for multiple exams. RADIATION DOSE: 42.91 CTDIvol (mGy) ; Combined studies MEDICAL HISTORY : Cardiovascular disease. Diabetes mellitus type 1. SURGICAL HISTORY : None. ENCOUNTER: Initial ACUITY: 1 day PAIN SCALE: 5/10 LOCATION: cranial TECHNIQUE: Volumetric scanning was performed using a multi-row detector CT scanner. The data was post processed with a variety of visualization algorithms including full volume maximum intensity projection, multi -planar sliding thin slab reformation, curved planar reformation, and surface rendering techniques. Using automated exposure control and adjustment of the mA and/or kV according to patient size, radiat ion dose was kept as low as reasonably achievable to obtain optimal diagnostic quality images. FINDINGS: There is excellent visualization of the major intracranial arteries out to the second-order branch ve ssels. There is no evidence for aneurysm, vessel truncation or stenosis, and no evidence for vascula r malformation. Again noted are extremely small caliber of the vertebral arteries and basilar arterie s. Again noted is opacification of the right sphenoid sinus. There are linear areas of hyperdensity with in the right sphenoid sinus which appear to correspond with areas of similar increased T1 signal on t he prior MRI consistent with areas of proteinaceous debris. CONCLUSION: 1. No evidence of stenosis, dissection or aneurysm. The vertebral arteries and basilar arteries again demonstrate extremely small caliber. 2.There is complete opacification of the right sphenoid sinus with proteinaceous debris. Laina Lowe MD on August 10, 2016 at 13:02 Board Certified Radiologist. This report was verified electronically. ADDENDUM: This report is amended to address the high-grade stenosis involving the proximal left internal caroti d artery just beyond the bifurcation where the residual lumen measures approximately 3 mm as compared to the 8 mm diameter of the vessel consistent with at least a 50% stenosis. The left internal caroti d artery regains a normal caliber just beyond the short segment. There is mild peripheral plaque iden tified within the proximal right internal carotid artery with no significant narrowing. Laina Lowe MD on August 10, 2016 at 13:23 Board Certified Radiologist. This report was verified electronically.
--- NOTE | 2016-08-10 13:36 | RADHPO ---
EXAM DATE/TIME: 08/10/2016 12:09 [facility] COMPARISON: No previous studies available for comparison. INDICATIONS : Left occlusion. IV CONTRAST: 93 cc Omnipaque 350 (iohexol) IV ; Cumulative dose for multiple exams. RADIATION DOSE: 42.91 CTDIvol (mGy) ; Combined studies MEDICAL HISTORY : Cardiovascular disease. Diabetes mellitus type 1. SURGICAL HISTORY : None. ENCOUNTER: Initial ACUITY: 1 day PAIN SCALE: 4/10 LOCATION: Left neck Elevated flow velocities and ICA/CCA ratios have been found to correlate with increased degrees of vessel stenosis, calculated as percentage of diameter relative to a normal segment of distal ICA/CCA. TECHNIQUE: Volumetric scanning was performed using a multirow detector CT scanner. The data was post processed with a variety of visualization algorithms including full-volume maximum intensity projection, multip lanar sliding thin-slab reformation, curved-planar reformation, and surface-rendering techniques. Us ing automated exposure control and adjustment of the mA and/or kV according to patient size, radiatio n dose was kept as low as reasonably achievable to obtain optimal diagnostic quality images. FINDINGS: AORTIC ARCH: There is a three-vessel origin of the great vessels from the aorta. No evidence of ostial narrowing. RIGHT CAROTID: The common carotid artery is intact. The carotid bulb has a normal configuration without ulceration o r significant narrowing. The internal carotid artery lumen demonstrates minimal narrowing with athero sclerotic plaque at the level of the bifurcation. The external carotid artery is intact. LEFT CAROTID: The common carotid artery is intact. The carotid bulb demonstrates atherosclerosis and noncalcified p laque which significantly narrows the lumen to approximately 2 mm. The nonopacified liver and measure s 8 mm consistent with greater than 70% stenosis. This extends over a 1.2 cm segment. The external ca rotid artery is intact. VERTEBRALS: The vertebral arteries have a symmetric small diameter. No stenotic lesions are seen. CONCLUSION: There is a short segment high-grade stenosis involving the proximal left internal carotid artery at t he level of the bifurcation where the residual lumen is decreased to approximately 2 mm in diameter. The vertebral arteries are small throughout their course.. Laina Lowe MD on August 10, 2016 at 13:25 Board Certified Radiologist. This report was verified electronically.
[2016-08-10] MEDS ORDERED: Aspirin Ec PO (15:13)
[2016-08-10] MEDS ORDERED: PROT40TA PO (15:15)
--- NOTE | 2016-08-10 15:45 | MB ---
cc: HIEU PETERSON MD DATE OF CONSULTATION 08/09/16 HISTORY OF PRESENT ILLNESS Mr. Schwarz is a gentleman who is [id number] and had symptomatology consistent with a cerebellar stroke when he presented to the emergency department. He was evaluated by Dr. Esdras richards and basically was seen on examination by MRA. Dictation ended abruptly. Hieu Peterson MD MPH/EO /2:49 PM /3:40 PM
--- NOTE | 2016-08-10 15:49 | MB ---
cc: HIEU PETERSON MD DATE OF CONSULTATION 08/09/2016 HISTORY OF THE PRESENT ILLNESS Kilo Schwarz is a gentleman who is 61 years old who presented to the emergency room at [facility] with significant vertigo, dizziness and inability to walk without feeling like he was going to fall. He was admitted. He was significantly hypertensive upon admission. Evaluation showed that he had suffered a cerebellar stroke. Evaluation by Dr. Dewitt of neurology felt that this was located to significant problems in his vertebral arteries and not related to his carotid arteries. He subsequently underwent workup which showed a hemodynamically significant lesion in his left carotid artery from which he has been totally asymptomatic. I was asked to evaluate him concerning the left carotid lesion. I have reviewed his CTA as well as his duplex of his carotid arteries. I have also reviewed his medication list and his history and physical. Dictation ended at this point. Hieu Peterson MD MPH/KK /2:55 PM /3:44 PM
[2016-08-10] MEDS ORDERED: cloNIDine HCL 0.1 MG TAB PO ONE (16:15)
[2016-08-10] MEDS ORDERED: hydrALAZINE HCL 20 MG/ML VIAL IV PUSH ONE (16:15)
--- NOTE | 2016-08-10 20:19 | MB ---
cc: HIEU PETERSON MD DATE OF CONSULTATION 08/09/2016 HISTORY Mr. Palmer is an 61-year-old gentleman who was admitted for significant vertigo and the inability to walk because of vertigo. His subsequent workup showed that he had a cerebellar stroke and had significant problems with bilateral stenoses of both vertebral arteries along the entire length of the vertebral artery. He subsequently was worked up for a CVA and found to have a 70% stenosis of his left internal carotid artery. I was asked to evaluate him concerning further therapy. I have reviewed his past medical history, the notes by his neurologist as well as physical therapy and his history and physical and his medications. PHYSICAL EXAMINATION GENERAL: His physical examination today reveals an alert white male who is in no acute distress. VITAL SIGNS: Blood pressure is 190/100, pulse of 60, respirations are 12. SKIN: Negative. HEAD, EYES, EARS, NOSE, AND THROAT: Negative. NECK: Supple with 2+ carotid pulses without transmitted bruits. CHEST: Clear to auscultation and percussion. CARDIOVASCULAR: Heart has a normal sinus rhythm. ABDOMEN: Soft and nontender. Groin pulses of 2+ bilaterally. I cannot palpate a pulse below the groin in either lower extremity. 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 He is mentally intact without any significant problems with mentation. IMPRESSION I have reviewed his CTA as well as the ultrasound of his carotid arteries. He has a hemodynamically significant lesion in his left carotid artery which needs to be addressed. He also has a completed cerebellar stroke which he appears to be recovering well from. At the present time the patient is stable. He lives in [place], [place] and because of multiple medical problems would like to go back to see his primary care physician. I believe that this would be a good way to proceed. I do not believe that he needs to have an urgent carotid endarterectomy and I have told him and his attending physicians that he can be discharged to follow up with his primary care physician in [facility], to be seen by a vascular surgeon at a later date. Thank you very much for allowing me to see your patient. Hieu Peterson MD MPH/KK /8:05 PM /8:12 PM
[2016-08-10] MEDS: INSULIN DETEMIR 100 UNITS/ML VIAL SQ SCH (20:31)
[2016-08-10] MEDS: EZETIMIBE 10 MG TAB PO SCH (20:33)
[2016-08-10] MEDS: FAMOTIDINE 20 MG TAB PO SCH (20:33)
[2016-08-10] MEDS: ENOXAPARIN SODIUM 40 MG/0.4 ML SYRINGE SQ SCH (20:34)
[2016-08-10] MEDS ORDERED: DOXAZOSIN MESYLATE 4 MG TAB PO SCH (21:00)
[2016-08-11] VITALS: BP 130/78; PULSE 70; RESP 18; TEMP 97.1; O2SAT 98
[2016-08-11 04:00] VITALS: BP 160/84; PULSE 65; RESP 18; TEMP 98.6; O2SAT 96
[2016-08-11] MEDS: GABAPENTIN 300 MG CAP PO SCH (06:13)
[2016-08-11] MEDS: LEVOTHYROXINE SODIUM 25 MCG TAB PO SCH (06:13)
[2016-08-11] MEDS: INSULIN ASPART SUPPLEMENTAL SCALE SQ SCH (06:15)
[2016-08-11 06:17] LABS: AUTOMATED NEUTROPHIL # 3.3 TH/MM3 (1.8-7.7); BASOPHIL % 0.9 % (0.0-2.0); EOSINOPHIL # 0.3 TH/MM3 (0-0.4); EOSINOPHIL % 5.1 % (0.0-4.0); HEMATOCRIT 45.7 % (39.0-51.0); HEMO FLAGS DIFF FINAL; LYMPH % 22.2 % (9.0-44.0); LYMPHOCYTE # 1.2 TH/MM3 (1.0-4.8); MEAN CELL VOLUME 87.4 FL (80.0-100.0); MEAN CORPUSCULAR HEMOGLOBIN 29.8 PG (27.0-34.0); MEAN CORPUSCULAR HGB CONC 34.1 % (32.0-36.0); MONO % 11.1 % (0.0-8.0); NEUT % 60.7 % (16.0-70.0); PLATELET COUNT 280 TH/MM3 (150-450); RED BLOOD COUNT 5.23 MIL/MM3 (4.50-5.90); RED CELL DISTRIBUTION WIDTH 12.2 % (11.6-17.2); WHITE BLOOD COUNT 5.4 TH/MM3 (4.0-11.0)
[2016-08-11 06:34] LABS: POTASSIUM 4.3 MEQ/L (3.5-5.1)
[2016-08-11 06:38] LABS: BICARBONATE 24.9 MEQ/L (21.0-32.0)
[2016-08-11 08:00] VITALS: BP 142/88; PULSE 76; RESP 18; TEMP 97.4; O2SAT 98
[2016-08-11] MEDS ORDERED: DOXAZOSIN MESYLATE 2 MG TAB PO SCH (09:00)
[2016-08-11] MEDS: SODIUM CHLORIDE 0.9% FLUSH 10 ML FLUSH IV FLUSH SCH (09:26)
[2016-08-11] MEDS: POLYETHYLENE GLYCOL 17 GM PKG PO SCH (09:27)
[2016-08-11] MEDS: ASPIRIN EC 325 MG TABEC PO SCH (09:27)
[2016-08-11] MEDS: TOLTERODINE TARTRATE 2 MG CAP LA PO SCH (09:27)
[2016-08-11] MEDS: PARoxetine HCL 20 MG TAB PO SCH (09:27)
[2016-08-11] MEDS: CLOPIDOGREL 75 MG TAB PO SCH (09:27)
[2016-08-11] MEDS: LOSARTAN 50 MG TAB PO SCH (09:28)
[2016-08-11] MEDS: FENOFIBRATE 145 MG TAB PO SCH (09:28)
[2016-08-11] MEDS: LABETALOL HCL 100 MG TAB PO SCH (09:28)
--- NOTE | 2016-08-11 09:30 | HHI.PR ---
Subjective Remarks feels alright thsi am. no cp or sob. no lh or dizz. wants to see how he does today. Objective Vital Signs Date Time Temp Pulse Resp B/P Pulse Ox O2 Delivery O2 Flow Rate FiO2 08/11/16 08:00 97.4 76 18 142/88 98 08/11/16 04:00 98.6 65 18 160/84 96 08/11/16 00:00 97.1 70 18 130/78 98 08/10/16 20:00 158/80 08/10/16 20:00 62 08/10/16 15:22 182/94 08/10/16 12:00 97.6 70 18 199/103 98 I/O 08/10/16 08/10/16 08/10/16 08/11/16 08/11/16 08/11/16 07:00 15:00 23:00 07:00 15:00 23:00 Intake Total 480 ml 1200 ml 240 ml Output Total 350 ml Balance 480 ml 850 ml 240 ml Intake Oral 480 ml 1200 ml 240 ml Output Urine Total 350 ml # Voids 3 4 1 # Bowel Movements 0 0 Result Diagram: 08/11/16 0600 08/11/16 0600 Imaging Last Impressions Neck CTA 08/10/16 0000 Signed Impressions: Service Date/Time: Wednesday, August 10, 2016 12:09 - CONCLUSION: There is a short segment high-grade stenosis involving the proximal left internal carotid artery at the level of the bifurcation where the residual lumen is decreased to approximately 2 mm in diameter. The vertebral arteries are small throughout their course.. Laina Lowe MD Head CTA 08/10/16 0000 Signed Impressions: Service Date/Time: Wednesday, August 10, 2016 12:09 - CONCLUSION: 1. No evidence of stenosis, dissection or aneurysm. The vertebral arteries and basilar arteries again demonstrate extremely small caliber. 2.There is complete opacification of the right sphenoid sinus with proteinaceous debris. Laina Lowe MD ADDENDUM: This report is amended to address the high-grade stenosis involving the proximal left internal carotid artery just beyond the bifurcation where the residual lumen measures approximately 3 mm as compared to the 8 mm diameter of the vessel consistent with at least a 50%% stenosis. The left internal carotid artery regains a normal caliber just beyond the short segment. There is mild peripheral plaque identified within the proximal right internal carotid artery with no significant narrowing. Laina Lowe MD Lower Extremity Ultrasound 08/09/16 Signed Impressions: Service Date/Time: Tuesday, August 09, 2016 20:01 - CONCLUSION: No DVT. Miah Key MD Head Magnetic Resonance Angiography 08/09/16 Signed Impressions: Service Date/Time: Tuesday, August 09, 2016 08:11 - CONCLUSION: No evidence of stenosis or aneurysm. Although the [place] of [place] is intact the vertebral arteries and basilar arteries are diffusely narrowed in caliber with respect to the remainder of the cerebral vasculature. Laina Lowe MD Carotid Artery Ultrasound 08/09/16 Signed Impressions: Service Date/Time: Tuesday, August 09, 2016 12:42 - CONCLUSION: Elevated velocity identified within the proximal left internal carotid artery consistent with a 50-69%% stenosis. This correlates with the degree of sclerosis seen on [place] scale. No significant stenosis identified in the right internal carotid artery. Laina Lowe MD Brain MRI 08/09/16 Signed Impressions: Service Date/Time: Tuesday, August 09, 2016 08:11 - CONCLUSION: Foci of acute infarct identified within the right cerebellum. No evidence of mass effect or effacement of the fourth ventricle. The foci of increased T2 signal identified in the supratentorial white matter are nonspecific and may reflect sequelae of chronic small vessel ischemic change. Laina Lowe MD Head CT 08/08/161716 Signed Impressions: Service Date/Time: Monday, August 08, 2016 17:32 - CONCLUSION: No acute intracranial findings Chaz Benson MD Chest X-Ray 08/08/161716 Signed Impressions: Service Date/Time: Monday, August 08, 2016 17:28 - CONCLUSION: 1. No acute cardiopulmonary findings. Steven Canseco MD Objective Remarks GENERAL: sitting up in bed. NAD. AAOx3 SKIN: Warm and dry. HEAD: Normocephalic. EYES: No scleral icterus. No injection or drainage. NECK: Supple, trachea midline. No JVD. CARDIOVASCULAR: Regular rate and rhythm without murmurs, gallops, or rubs. RESPIRATORY: Breath sounds equal bilaterally. No accessory muscle use. GASTROINTESTINAL: Abdomen soft, non-tender, nondistended. MUSCULOSKELETAL: No cyanosis, or edema. BACK: Nontender without obvious deformity. No CVA tenderness. A/P Assessment and Plan 61-year-old male with: //Stroke: with complaint of dizziness and difficulty walking. Symptoms resolved. -EKG with sinus rhythm, left axis deviation, and lateral T-wave changes. No prior EKG for comparison. -MRI brain: Foci of acute infarct identified within the right cerebellum. No evidence of mass effect or effacement of the fourth ventricle. -MRA brain: [place] is intact, but the vertebral arteries and basilar arteries are diffusely narrowed. -Carotid US: Elevated velocity identified within the proximal left internal carotid artery consistent with a 50-69% stenosis. No significant stenosis identified in the right internal carotid artery. -Echo with mildly reduced systolic function, EF 45-50%. -Neurology consultation appreciated. Dr. Dewitt recommends continuing home antihypertensives but systolic BP should not be below 120. -Neuro has ordered CTA of the [place] of [place] and carotids which show high grade stenosis of the L internal carotid artery; consulted vacular surgery; spoke with Dr. Herrmann who states patient can follow up with vascular surgeon outpatient in [facility]. -Glucose checks -Neuro checks -Telemetry -PT/OT evaluation -ASA 325 mg daily while in hospital -Spoke with Dr. Dewitt; she advises patient speak with bag tester in regards to anticoagulation change; she is ok with him continuing aspirin 325 mg bid. I verified later that patient actually takes 650 mg bid; discussed with Dr. Watson who advises only continuing 325 bid at home and add PPI. = 08/11. Patient feeling all right. Like to see how he does by noon. If blood pressure stable. Will discharge home. Decreased doxazosin. //HTN: 210/112 at highest. -Continue home Labetalol -Discontinue permissive HTN -Resume Losartan and Doxazosin which patient takes at home. -Patient's BP still 182/94 this afternoon. Discussed with Dr. Watson. 10 mg IV Hydralazine ordered. BP rechecked and dropped into 120's. RN later checked orthostatics, supine SBP 162-->142 sitting and standing; patient still feels mildly dizzy. Will observe patient and monitor BP tonight and discharge in the am. = 08/11. Blood pressure improved today. Lightheadedness resolved. Decreased doxazosin. //Poorly controlled DM: Hb A1c 9.1. -Continue Levemir 10 units qhs. -Bedside glucose checks. BGLs reviewed. Change low dose SSI to medium scale. -Blood sugars acceptable. //HLD: New Lipid profile with triglycerides 400, LDL 93, HDL 39.6. -Continue fenofibrate. Patient's throat closes up with statin use; will avoid starting this. -Goal LDL <70. //CAD: Continue Plavix. //Continue home medications for chronic constipation, depression, thyroid. //GI prophylaxis: Pepcid //DVT prevention: Lovenox Discharge Planning This patient's blood pressure stable by noon, discharge home. We'll need to follow up with cardiovascular surgery for endarterectomy as outpatient. Nik Watson MD Aug 11, 2016 09:29
[2016-08-11] MEDS ORDERED: DOXA1TAB35 PO (09:33)
[2016-08-11 12:00] VITALS: BP 148/88; PULSE 81; RESP 18; TEMP 97.6; O2SAT 97
[2016-08-11 12:28] VITALS: BP 148/88
--- NOTE | 2016-08-11 15:34 | HM ---
Date Performed: 08/09/2016 Time Performed: 15:12:00 HOOKUP DATE: 08/09/16 03:12:00 PM Sat ANALYSIS START TIME: 08/09/2016 3:17:00 PM ANALYSIS END TIME: 08/10/2016 3:06:17 PM PATIENT AGE: 61 PATIENT HEIGHT PATIENT WEIGHT DRUG LIST PATIENT DIAGNOSIS: DIZZINESS/TIA TEST NARRATIVE: The patient's average heart rate was 69 BPM. No episodes of tachycardia wer e noted. Heart rates less than 50 BPM were noted < 1% of the time. No pauses exceeding 2.0 secon ds were noted. 231 ventricular ectopics, which represented < 1% of the total beat count, were not ed. The highest ventricular ectopic frequency occurred from 06:00 AM to 07:00 AM Sun. During this t isrrael 17 VE(s) occurred. Ventricular ectopics were observed as 227 isolated beat(s) and as 2 couplet(s ). No runs were noted. 75 supraventricular ectopics, which represented < 1% of the total beat co unt, were noted. The highest supraventricular ectopic frequency occurred from 02:00 PM to 03:00 PM S un. During this time 10 SVE(s) occurred. No episodes of ST depression (defined as -1.0 mm or mor e) were noted in channel 1. No episodes of ST depression (defined as -1.0 mm or more) were noted in channel 2. No episodes of ST depression (defined as -1.0 mm or more) were noted in channel 3. TEST INTERPRETATION: 24 Hour Holter Monitor-Dr. Mya River Patient undergoes a Holter montor to evaluate for possible dizziness or TIAs. There is no diary provided. Only the expanded tracings are subject to interpretation. The expanded tracings show Sinus rhythm with premature atrial contractions and premature ventricular contractions. There were occassional co uplets noted, but there is no complex ventricular ectopy. There are occassional bursts of consecutive premature atrial contractions noted, but the rrate is not fst enough to meet criteria for tachycardi a. There is no Bradycardia noted. CONCLUSION: Holter monitor showing sinus rhythm with premature at rial contractions and premature ventricular contractions. Occassional ventricular couplets, but no co mplex ventricular ectopy. There is no significant tachy arrhythmias or Armando arrhythmias. There was n o diary provided, so it is unknown as to whether the patient is symptomatic. Signed by : Mya River
--- NOTE | 2016-08-11 15:49 | HHI.DS ---
Discharge Summary Admission Date Aug 09, 2016 at 17:54 Discharge Date: Aug 11, 2016 Admitting Diagnosis dizziness, TIA (1) Stroke ICD Code: I63.9 (2) HTN (hypertension) ICD Code: I10 (3) Poorly controlled diabetes mellitus ICD Code: E11.65 (4) HLD (hyperlipidemia) ICD Code: E78.5 Procedures No invasive procedures performed. Brief History - From Admission 61-year-old male with history of coronary artery disease, hyperlipidemia, hypertension, and diabetes presents with complaint of dizziness and difficulty walking. 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 He states it then decreased but yesterday morning it occurred again but then calmed down. He states he and his left [facility] and were on their way to [place] when he became quite dizzy and very lightheaded with blurry vision. He states he was falling and couldn't walk. CT had some mild nausea, but he denies any weakness , numbness or tingling in extremities, or slurred speech. He denies any fevers , chest pain, shortness of breath, vomiting, or diarrhea. He states he feels better now that he is back to normal. But he does admit to some cramping discomfort in his left calf which she has had for 6 months. The patient is a diabetic and states his blood glucose levels are all over the place. He denies any recent hypoglycemic episodes. He denies any history of A. fib, palpitations , or chest pain on exertion. He had a stress test last March which was normal. His father had Factor V Leiden deficiency, but he states he has been tested and does not have this. CBC/BMP: 08/11/16 0600 08/11/16 0600 Significant Findings Laboratory Tests Test 08/08/16 08/09/16 08/11/16 17:20 07:35 06:00 Monocytes (%) (Auto) 9.3 % (0.0-8.0) 11.1 % (0.0-8.0) Eosinophils (%) (Auto) 7.6 % (0.0-4.0) 5.1 % (0.0-4.0) Eosinophils # (Auto) 0.5 TH/MM3 (0-0.4) Estimat Glomerular Filtration 56 ML/MIN (>89) 61 ML/MIN (>89) Rate Random Glucose 161 MG/DL 194 MG/DL (74-106) (74-106) Troponin I LESS THAN 0.02 NG/ML (0.02-0.05) Hemoglobin A1c 9.1 % (4.3-6.0) Triglycerides Level 400 MG/DL (42-150) Cholesterol Level 213 MG/DL (120-200) HDL Cholesterol 39.6 MG/DL (40.0-60.0) Chloride Level 108 MEQ/L (98-107) Imaging Last Impressions Neck CTA 08/10/16 0000 Signed Impressions: Service Date/Time: Wednesday, August 10, 2016 12:09 - CONCLUSION: There is a short segment high-grade stenosis involving the proximal left internal carotid artery at the level of the bifurcation where the residual lumen is decreased to approximately 2 mm in diameter. The vertebral arteries are small throughout their course.. Laina Lowe MD Head CTA 08/10/16 0000 Signed Impressions: Service Date/Time: Wednesday, August 10, 2016 12:09 - CONCLUSION: 1. No evidence of stenosis, dissection or aneurysm. The vertebral arteries and basilar arteries again demonstrate extremely small caliber. 2.There is complete opacification of the right sphenoid sinus with proteinaceous debris. Laina Lowe MD ADDENDUM: This report is amended to address the high-grade stenosis involving the proximal left internal carotid artery just beyond the bifurcation where the residual lumen measures approximately 3 mm as compared to the 8 mm diameter of the vessel consistent with at least a 50%% stenosis. The left internal carotid artery regains a normal caliber just beyond the short segment. There is mild peripheral plaque identified within the proximal right internal carotid artery with no significant narrowing. Laina Lowe MD Lower Extremity Ultrasound 08/09/16 0000 Signed Impressions: Service Date/Time: Tuesday, August 09, 2016 20:01 - CONCLUSION: No DVT. Miah Key MD Head Magnetic Resonance Angiography 08/09/16 Signed Impressions: Service Date/Time: Tuesday, August 09, 2016 08:11 - CONCLUSION: No evidence of stenosis or aneurysm. Although the beaver of [place]at is intact the vertebral arteries and basilar arteries are diffusely narrowed in caliber with respect to the remainder of the cerebral vasculature. Laina Lowe MD Carotid Artery Ultrasound 08/09/16 Signed Impressions: Service Date/Time: Tuesday, August 09, 2016 12:42 - CONCLUSION: Elevated velocity identified within the proximal left internal carotid artery consistent with a 50-69%% stenosis. This correlates with the degree of sclerosis seen on b[place] scale. No significant stenosis identified in the right internal carotid artery. Laina Lowe MD Brain MRI 08/09/16 Signed Impressions: Service Date/Time: Tuesday, August 09, 2016 08:11 - CONCLUSION: Foci of acute infarct identified within the right cerebellum. No evidence of mass effect or effacement of the fourth ventricle. The foci of increased T2 signal identified in the supratentorial white matter are nonspecific and may reflect sequelae of chronic small vessel ischemic change. Laina Lowe MD Head CT [id number]/[id number] Signed Impressions: Service Date/Time: Monday, August 08, 2016 17:32 - CONCLUSION: No acute intracranial findings Chaz Benson MD Chest X-Ray [id number] Signed Impressions: Service Date/Time: Monday, August 08, 2016 17:28 - CONCLUSION: 1. No acute cardiopulmonary findings. Steven Canseco MD PE at Discharge GENERAL: Well-nourished, developed patient no apparent distress. SKIN: Warm and dry. HEAD: Atraumatic. Normocephalic. EYES: Pupils equal and round. No scleral icterus. No injection or drainage. ENT: Mucous membranes pink and moist. Airway patent. CARDIOVASCULAR: Regular rate and rhythm. RESPIRATORY: No accessory muscle use. Clear to auscultation. Breath sounds equal bilaterally. GASTROINTESTINAL: Abdomen soft, non-tender, nondistended. MUSCULOSKELETAL: No lower extremity edema bilaterally. NEUROLOGICAL: Awake and alert. No obvious cranial nerve deficits. Motor grossly within normal limits. Five out of 5 muscle strength in bilateral arms and legs. Normal speech. PSYCHIATRIC: Appropriate mood and affect; insight and judgment normal. Hospital Course Patient's blood pressure medications were held, permissive hypertension. Lightheadedness improved with permissive hypertension. MR angiogram head and neck with bilateral carotid stenosis, diffuse narrowing of vertebral arteries. Slowly added back blood pressure medications. Systolic blood pressure elevated in the 190s on 08/10, and given 10 mg of IV hydralazine, with dropped to 120 systolic, with lightheadedness. Lightheadedness improved upon lying down. Neurology was consulted during admission, recommended continuing anticoagulation. 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 Due to bilateral carotid stenosis, vascular surgery was consulted, and recommends following up with vascular surgery as outpatient in patient's home town for evaluation of corrective surgery. Patient advised not to drive. Continue with permissive hypertension with SBP 140-180s. Decreased patient's doxazosin. He is advised to seek urgent medical attention if he experiences lightheadedness. For Problem-based summary for most recent progress note, please see below. 61-year-old male with: //Stroke: with complaint of dizziness and difficulty walking. Symptoms resolved. -EKG with sinus rhythm, left axis deviation, and lateral T-wave changes. No prior EKG for comparison. -MRI brain: Foci of acute infarct identified within the right cerebellum. No evidence of mass effect or effacement of the fourth ventricle. -MRA brain: beaver of [place]ag[place] is intact, but the vertebral arteries and basilar arteries are diffusely narrowed. -Carotid US: Elevated velocity identified within the proximal left internal carotid artery consistent with a 50-69% stenosis. No significant stenosis identified in the right internal carotid artery. -Echo with mildly reduced systolic function, EF 45-50%. -Neurology consultation appreciated. Dr. Dewitt recommends continuing home antihypertensives but systolic BP should not be below 120. -Neuro has ordered CTA of the [place] [place] of [place] and carotids which show high grade stenosis of the L internal carotid artery; consulted vacular surgery; spoke with Dr. Herrmann who states patient can follow up with vascular surgeon outpatient in [facility]. -Glucose checks -Neuro checks -Telemetry -PT/OT evaluation -ASA 325 mg daily while in hospital -Spoke with Dr. Dewitt; she advises patient speak with screw machine tender in regards to anticoagulation change; she is ok with him continuing aspirin 325 mg bid. I verified later that patient actually takes 650 mg bid; discussed with Dr. Watson who advises only continuing 325 bid at home and add PPI. = 08/11. Patient feeling all right. Like to see how he does by noon. If blood pressure stable. Will discharge home. Decreased doxazosin. //HTN: 210/112 at highest. -Continue home Labetalol -Discontinue permissive HTN -Resume Losartan and Doxazosin which patient takes at home. -Patient's BP still 182/94 this afternoon. Discussed with Dr. Watson. 10 mg IV Hydralazine ordered. BP rechecked and dropped into 120's. RN later checked orthostatics, supine SBP 162-->142 sitting and standing; patient still feels mildly dizzy. Will observe patient and monitor BP tonight and discharge in the am. = 08/11. Blood pressure improved today. Lightheadedness resolved. Decreased doxazosin. //Poorly controlled DM: Hb A1c 9.1. -Continue Levemir 10 units qhs. -Bedside glucose checks. BGLs reviewed. Change low dose SSI to medium scale. -Blood sugars acceptable. //HLD: New Lipid profile with triglycerides 400, LDL 93, HDL 39.6. -Continue fenofibrate. Patient's throat closes up with statin use; will avoid starting this. -Goal LDL <70. //CAD: Continue Plavix. //Continue home medications for chronic constipation, depression, thyroid. //GI prophylaxis: Pepcid //DVT prevention: Lovenox Discharge Planning This patient's blood pressure stable by noon, discharge home. We'll need to follow up with cardiovascular surgery for endarterectomy as outpatient. Pt Condition on Discharge: Good Discharge Disposition: Discharge Home Discharge Time: > 30 minutes Discharge Instructions DIET: Follow Instructions for: Diabetic Diet Activities you can perform: Regular-No Restrictions Follow up Referrals: Neurology - 1 Week PCP Follow-up - 2-3 Days New Medications: Doxazosin (Doxazosin) 2 Mg Tab 2 MG PO BID blood pressure #60 Ref 0 TAB Pantoprazole (Protonix) 40 Mg Tab 40 MG PO DAILY GI protection #30 Ref 0 TAB ([Aspirin Ec]) 325 MG TABEC 325 MG PO BID Stroke Prevention #60 TAB.EC Continued Medications: Acetaminophen (Tylenol) 325 Mg Cap 1000 MG PO BID Ref 0 CAP Acisixc-Iralzwmep-Jrqy (Calcium & Magnesium + Zinc) 334-134-5 Mg Tab 1 TAB PO BID TAB Clopidogrel (Clopidogrel) 75 Mg Tab 75 MG PO DAILY Blood Clot Prevention #30 Ref 0 TAB Dulaglutide Inj (Trulicity Inj) 0.75 Mg/0.5 Ml Pen 0.75 MG SQ Q7D Blood Sugar Management #4 Ref 0 PEN Ezetimibe (Zetia) 10 Mg Tab 10 MG PO DAILY #30 Ref 0 TAB Fenofibrate (Fenofibrate) 160 Mg Tab 160 MG PO DAILY #30 Ref 0 TAB Gabapentin (Gabapentin) 600 Mg Tab 600 MG PO TID #90 Ref 0 TAB Insulin Aspart Inj (Novolog Inj) 1,000 Unit/10 Ml Vial 0 SQ TID Sliding Scale as directed. Blood Sugar Management #10 Ref 0 ML Insulin Degludec Inj (Tresiba Flextouch Pen Inj) 300 unit/3 ML Pen 20 UNITS SQ HS Blood Sugar Management #15 Ref 0 ML Labetalol (Labetalol) 300 Mg Tab 300 MG PO BID Blood Pressure Management Ref 0 TAB Levothyroxine (Levothyroxine) 25 Mcg Tab 25 MCG PO DAILY Thyroid #30 Ref 0 TAB Losartan (Losartan) 100 Mg Tab 100 MG PO DAILY Blood Pressure Management #30 Ref 0 TAB Multiple Vitamins W/ Minerals (Multivitamin Adults) 1 Tab 1 TAB PO DAILY Nutritional Supplement Ref 0 TAB Paroxetine (Paroxetine) 20 Mg Tab 20 MG PO DAILY #30 Ref 0 TAB Polyethylene Glycol 3350 Powder (Miralax Powder) 17 Gm Powd 17 GM PO DAILY Mix and dissolve one measuring cap-ful (17 grams) in water or juice. Constipation #1 Ref 0 BOTTLE Psyllium Powder (Metamucil Original Texture) 48.57 % Pow 1 SCOOP PO TID 1 rounded TEASPOON in 8 oz of liquid at the first sign of irregularity. PRN CONSTIPATION Ref 0 CONTAINER Tolterodine (Tolterodine) 1 Mg Tab 1 MG PO BID Urinary Symptom Managemen #60 Ref 0 TAB Discontinued Medications: Aspirin (Aspirin) 325 Mg Tab 650 MG PO BID Ref 0 TAB Diphenhydramine (Benadryl Allergy) 25 Mg Tab 50 MG PO HS PRN ALLERGIES Ref 0 TAB Doxazosin (Doxazosin) 4 Mg Tab 4 MG PO BID #30 Ref 0 TAB Solifenacin (Vesicare) 5 Mg Tab 5 MG PO BID Urinary Symptom Managemen #30 Ref 0 TAB Zolpidem (Zolpidem) 10 Mg Tab 10 MG PO HS INSOMNIA Ref 0 TAB Nik Watson MD Aug 11, 2016 15:48
== END 2016-08-11 13:07 | disposition home or self-care (01) | DRG 66 ==
LOC: PHED 16:25 → PHEDA 18:16 → PH3A 23:10 → OBSVTOIN 08-09 17:54
PROVIDERS: ADMIT Internal Medicine; ATTEND Internal Medicine
DX: I63.213 Cerebral infarction due to unspecified occlusion or stenosis of bilateral vertebral arteries (principal); E11.42 Type 2 diabetes mellitus with diabetic polyneuropathy; I25.10 Atherosclerotic heart disease of native coronary artery without angina pectoris; I10 Essential (primary) hypertension; I65.23 Occlusion and stenosis of bilateral carotid arteries; E11.65 Type 2 diabetes mellitus with hyperglycemia; E78.5 Hyperlipidemia, unspecified; K59.09 Other constipation; F32.9 Major depressive disorder, single episode, unspecified; Z79.4 Long term (current) use of insulin; Z80.3 Family history of malignant neoplasm of breast; Z80.8 Family history of malignant neoplasm of other organs or systems; Z82.49 Family history of ischemic heart disease and other diseases of the circulatory system; Z83.3 Family history of diabetes mellitus; Z95.5 Presence of coronary angioplasty implant and graft
CPT/HCPCS: 70450; 70496; 70498; 70544; 70551; 71010; 76937; 80048; 80061; 82948; 83036; 84484; 85025; 85610; 93005; 93225; 93226; 93306; 93880; 93971; 96361; 96374; G0378; G8987-GO; G8987-GP; G8988-GO; G8988-GP; G8989-GO; J0360; J1650; J1815; J2405; J7030; J7040; Q9967